=== PATIENT | male | born 1980 | race Caucasian/White ===

== ENCOUNTER 2018-03-13 09:57 | Outpatient (RCR) | payer MEDICAID, SELFPAY ==
--- NOTE | 2018-03-14 12:14 | HP.FCE ---
HP OT Functional Capacity Eval - Reference Duration Sedentary Sedentary Light Light Light Medium Medium Medium Heavy Very Heavy Heavy Occasional (0-33% of day) Frequent (34-66% of day) Constant (67-100% of day) 10 # Negligible Negligible 15 # 8 # Negligible 20 # 10# Negli. 35 # 18 # 7 # 50 # 25 # 10 # 75 # 100 # >100 # 38 # 50 # >50 # 15 # 20 # >20 # - Patient Information Height: 5 ft 6 in Weight:: 97.069 kg Hand Dominance: Right - Medical History Medical History Including Restrictions: Migraines, autonomic dysfunction, autonomic nervous system, lumbar disc pain, asthma - Diagnoses Diagnoses: Migraines, autonomic dysfunction, autonomic nervous system, lumbar disc pain, asthma - Symptoms Symptoms: migraines- dizziness, nauseated, SOB, passout at times, frequent falls, pain in lower back and down R leg, numbness tingling R leg and bilateral hands/fingers, fatigue, brain fog, migraine's vary 2-3x/wk, always has a mild headache, when migraine comes on it is moderate to severe pain that she sometimes is not able to function at all, symptoms include; brain fog, nausea/vomiting, photosensitivity, visual disturbances, mood changes, mental confusion, inablity to concentrate, dizziness, vertigo, decreased balance, eye twitches, can't be in florescent lighting, or by a computer screen, increased smells trigger them, weather changes increase headaches, lack of sleep, loud noises, stress, intake of caffiene, not getting enough fluids, migraines can last 2 hrs to 6 days straight. Headaches get worse with bright lights, coughing, straining/bowel movement, moving around, noise. To help with headaches she will isolate herself in a quiet dark space with ice packs, if really bad will go to hospital and get oxygen and IV's to help. - Pain Pain: 8/10 pain R leg, mild headache at time of evaluation - Work History Work History: Unemployed at this time. 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 Pt has a tub/shower, HHS, std toilet seats. No DME, Independent with AMB will furniture walk or lean against palacio if very dizzy or painful. Laundry in basement with flight of steps 1 handrail, ex- and children help carry laundry baskets down if needed. Indep w/ BADLs, if having a good day alright for participating with IADLs such as laundry or cooking, if painful will have help or eat out for cooking. Has someone take care of yard work. Drives short distances only if symptom free. Sleeps between regular bed and recliner pending on pain and nausea. - Physical Examination ROM: BUE WFL, BLE WFL Strength: Generalized BUE strength 4/5, Generalized R LE 3+/5, L LE 4/5 Right Inserter Promotional Item Strength Average: 47.66 Left Inserter Promotional Item Strength Average: 48.33 Right Lateral Pinch Average: 17.33 Left Lateral Pinch Average: 14.66 Right Tripod Pinch Average: 11.66 Left Tripod Pinch Average: 12.33 Sensation: No numbness or tingling noted in hands. Does have numbness/tingling R leg. Fine Motor: Pt states no concerns with fine motor. Independent with writing, fasteners, BADL's. Balance: Pt states frequent falls, bathtub, down steps, hallways, into wall, furniture walks - Non Material Handling Activities Bending: Able to bend down to toes w/o difficulty, slow moving to come back up secondary to dizziness 1 time. Extra time needed to decrease dizziness once standing up straight again. Held onto desk with L hand for support once in standing position. Squatting: Able to complete 11 squats in a row, slow moving secondary to dizziness. Use of L hand on desk for support. Kneeling: Able to kneel 4 times with increased pain R leg/lower back to complete task. Unable to complete anymore per pt secondary to increased pain. Reaching out/up: Pt able to stand and reach out and up without difficulty or loss of balance. Standing balance tested front/back, side to side, no loss of balance. Walking: Completed 15 minute walk test slow pace, occassionally holding onto wall or rail when walking, very slow to turn around secondary to dizzy if turns to fast. Pt states holds onto furniture or hallways/palacio at home or sometimes has her children help her walk through the house if having a bad day. Standing: Pt able to stand without loss of balance or difficulty. Completed 15 minute walk test without requiring rest break, slow moving pace. Sitting: Pt able to sit in chair with armrests and back support without difficulty. Sat in chair without getting up for 25 minutes before asked to get up to complete physical part of evaluation. Climbing Stairs: Pt able to climb 10 steps using bilateral handrails, slow moving - Dynamic Occasional Lifting Capacity Floor Lift: floor lift 25# max, Unable to lift anymore weight secondary to increased pain in lower back per pt Knee Lift: knee lift 25# max, Unable to lift anymore weight secondary to increased pain in lower back per pt Waist Lift: waist lift 25# max, Unable to lift anymore weight secondary to increased pain in lower back per pt Shoulder Lift: shoulder lift 20# max, Unable to lift anymore weight secondary to increased pain in lower back per pt Overhead Lift: overhead lift 20# max, Unable to lift anymore weight secondary to increased pain in lower back per pt Carrying: able to carry 20# max, Unable to carry anymore weight secondary to increased pain in lower back per pt Comments: Unable to lift anymore weight secondary to increased pain in lower back per pt. According to functional activities questionaire, pt stated does not exercise regular, does not do yard work, does not sit throught a movie or play, can walk around the yard, the block and the grocery store using a cart. Pt states is not able to carry groceries into the house and put them away. States she is able to do laundry and walk up and down the steps. Pt is able to cook and do housework such as sweeping, vaccumming and cleaning. Pt states is able to bath feed, dress and otherwise care for herself. Pt stated can drive or ride in a car 1-2 hrs before need to get out and stretch, she can walk at a mall or event for 30-60 minutes before having to sit down, usually sits for 5 hrs a day, usually stand/walk 2 hrs a day, usually lie/recline for 3 hrs a day and most comfortable position varies between sitting and lying.
== END 2018-03-13 19:00 | disposition home or self-care (01) ==
LOC: OT 09:57
DX: G43.909 Migraine, unspecified, not intractable, without status migrainosus (principal); G90.8 Other disorders of autonomic nervous system; M51.06 Intervertebral disc disorders with myelopathy, lumbar region; J45.909 Unspecified asthma, uncomplicated
CPT/HCPCS: 97165